=== PATIENT | male | born 1990 | race Caucasian/White ===

== ENCOUNTER 2023-12-12 19:17 | Emergency (ER) | payer SELFPAY ==
[2023-12-12 19:23] VITALS: BP 135/86; PULSE 81; TEMP 36.4; O2SAT 97; BMI 30.8
--- NOTE | 2023-12-12 19:31 | ED.GENADUL1 ---
HPI HPI - General Adult General Chief complaint: Skin/Abscess/Foreign Body Stated complaint: Wound CHECK left foot Time Seen by Provider: 12/12/23 19:21 Source: patient Mode of arrival: walk-in Limitations: no limitations History of Present Illness HPI narrative: Patient is a 33-year-old male who presents to the emergency department for the evaluation of redness and swelling to the medial aspect of the right great toe. He states that has been present for several days. No drainage or injury. He has no other focal medical complaints. Related Data Previous Rx's ?Medication ?Instructions ?Recorded cephalexin 500 mg capsule 500 mg PO Q8H 7 days #21 caps 12/12/23 naproxen sodium 550 mg tablet 550 mg PO BID PRN pain #10 tabs 12/12/23 Allergies Allergy/AdvReac Type Severity Reaction Status Date / Time Sulfa (Sulfonamide Allergy Mild itching Verified 12/12/23 19:23 Antibiotics) prednisone AdvReac Intermediate Palpitation Verified 12/12/23 19:23 s codine AdvReac Intermediate Palpitation Uncoded 12/12/23 19:23 s Opioid HPI Opioid Management Most Recent Opioid Data: No Data to Display Review of Systems ROS Constitutional Denies: fever or chills Ears, nose, mouth, and throat Denies: throat pain or nasal congestion Respiratory Denies: shortness of breath Gastrointestinal Denies: nausea or vomiting Integumentary/Breast Denies: rash Neurological Denies: headache Hematologic/Lymphatic Denies: easy bruising or easy bleeding Exam Narrative Exam Narrative: Gen.: Awake, alert, in no distress Head: Normocephalic, atraumatic ENT: Moist mucous membranes Respiratory: No respiratory distress Extremities: Moves extremities equally; Ingrown toenail noted with mild swelling and redness, no visible abscess or paronychia noted of the right great toe. Psych: Normal mood and affect Neuro: No focal neuro deficit Skin: Warm, dry, intact Constitutional Vital Signs, click to edit/add: Last Vital Signs Temp 97.6 F 12/12/23 19:23 Pulse 81 12/12/23 19:23 Resp 16 12/12/23 19:23 BP 135/86 12/12/23 19:23 Pulse Ox 97 12/12/23 19:23 O2 Del Method Room Air 12/12/23 19:23 Course Vital Signs Vital signs: Vital Signs Temperature 97.6 F 12/12/23 19:23 Pulse Rate 81 12/12/23 19:23 Respiratory Rate 16 12/12/23 19:23 Blood Pressure 135/86 12/12/23 19:23 Pulse Oximetry 97 12/12/23 19:23 Oxygen Delivery Method Room Air 12/12/23 19:23 Temperature 97.6 F 12/12/23 19:23 Pulse Rate 81 12/12/23 19:23 Respiratory Rate 16 12/12/23 19:23 Blood Pressure 135/86 12/12/23 19:23 Pulse Oximetry 97 12/12/23 19:23 Oxygen Delivery Method Room Air 12/12/23 19:23 Medical Decision Making MDM Narrative Medical decision making narrative: Exam is consistent with an ingrown toenail, patient placed on Keflex and encouraged to do warm soaks, follow-up with podiatry and return to the ER if symptoms change or worsen SHARED APC VISIT, PHYSICIAN ATTESTATION: [id number] I performed a substantive part of the MDM during the patient?s E/M visit. I personally evaluated and examined the patient. I personally made or approved the documented management plan and acknowledge its risk of complications. Medical Records Medical records reviewed: Yes I reviewed the patient's medical records Discharge Plan Discharge Stand Alone Forms: Portal Instructions Chief Complaint: Skin/Abscess/Foreign Body Clinical Impression: Ingrowing toenail of right foot Patient Disposition: Home, Self-Care Time of Disposition Decision: 19:30 Condition: Good Prescriptions / Home Meds: New cephalexin 500 mg capsule 500 mg PO Q8H 7 Days Qty: 21 0RF naproxen sodium 550 mg tablet 550 mg PO BID PRN (Reason: pain) Qty: 10 0RF Print Language: [place] Instructions: Ingrown Nail (ED), Warm Compress or Soak (ED) Referrals: [facility] [place] [Primary Care Provider] - 1 week Rommel Bruno DPM [Physician] - As needed
[2023-12-12 19:40] VITALS: BP 132/84; PULSE 72; O2SAT 99
== END 2023-12-12 19:40 | disposition home or self-care (01) ==
PROVIDERS: Emergency Provider Emergency Medicine
DX: L60.0 Ingrowing nail (principal)
CPT/HCPCS: 99283